=== PATIENT | male | born 1945 | race Caucasian/White ===

== ENCOUNTER 2018-08-16 09:06 | Outpatient (CLI) | payer MEDICARE, OTHER, SELFPAY ==
[2018-08-16 10:33] LABS: ALT 36 U/L (12-78); AST 17 U/L (15-37); Albumin 3.9 g/dL (3.4-5.0); Alkaline Phosphatase 70 U/L (46-116); BUN 18 mg/dL (7-18); Bilirubin, Total 0.9 mg/dL (0.2-1.0); Calcium 9.1 mg/dL (8.5-10.1); Calculated LDL 62; Chloride 106 mmol/L (98-107); Cholesterol 124 mg/dL (50-200); Glucose 115 mg/dL (70-100); HDL Cholesterol 39 mg/dL (40-60); Potassium 4.3 mmol/L (3.5-5.1); Sodium 145 mmol/L (136-145); Total Protein 6.6 g/dL (6.4-8.2); Triglyceride 119 mg/dL (30-150)
== END 2018-08-16 09:26 ==
PROVIDERS: PCP Nurse Practitioner Family; Visit Provider Nurse Practitioner Family
DX: E78.5 Hyperlipidemia, unspecified; I10 Essential (primary) hypertension
CPT/HCPCS: 36415; 80053; 80061; 83721

== ENCOUNTER 2019-04-25 10:21 | Outpatient (CLI) | payer MEDICARE, OTHER, SELFPAY ==
--- NOTE | 2019-04-25 10:00 | DI.RAD_ITS ---
EXAM: Chest x-ray CLINICAL HISTORY: Worsening cough R05, SOB R06.02 TECHNIQUE: 2D digital imaging was performed. COMPARISON: No exams were available for comparison FINDINGS: The cardiac and mediastinal contours have a normal appearance. The lungs are well inflated and clear . No infiltrate, effusion or pneumothorax is seen. No spine or rib fracture is identified. IMPRESSION: Negative chest x-ray.
== END 2019-04-25 10:41 ==
PROVIDERS: PCP Nurse Practitioner Family; Visit Provider Nurse Practitioner
DX: R05 Cough (principal); R06.02 Shortness of breath
CPT/HCPCS: 71046

== ENCOUNTER 2019-07-08 02:09 | Outpatient (CLI) | payer MEDICARE, OTHER, SELFPAY ==
[2019-07-08 10:16] LABS: BUN 19 mg/dL (7-18); CO2 32.3 mmol/L (21.0-32.0); CREATININE 1.11 mg/dL (0.70-1.30); Calcium 9.2 mg/dL (8.5-10.1); Calculated LDL 81 mg/dL (<100); Chloride 103 mmol/L (98-107); Cholesterol 154 mg/dL (<200); Glucose 104 mg/dL (74-106); HDL Cholesterol 43 mg/dL (40-60); Sodium 143 mmol/L (136-145); Triglyceride 152 mg/dL (<150)
[2019-07-08 10:17] LABS: Anion Gap 7.7 mmol/L (3-11)
[2019-07-11 10:34] LABS: TSH (W/Ref FT4) 1.92 uIU/mL (0.36-3.74)
== END 2019-07-08 02:29 ==
PROVIDERS: PCP Nurse Practitioner Family; Visit Provider Nurse Practitioner Family
DX: I10 Essential (primary) hypertension (principal); E78.5 Hyperlipidemia, unspecified; R25.1 Tremor, unspecified
CPT/HCPCS: 36415; 80048; 80061; 84443

== ENCOUNTER 2020-10-21 02:43 | Outpatient (CLI) | payer MEDICARE, OTHER, SELFPAY ==
[2020-10-21 11:49] LABS: HCT 43.8 % (40.0-50.0); HGB 14.5 g/dL (13.5-17.5); MCH 30.9 pg (27.0-33.0); MCHC 33.1 % (32.0-36.0); MCV 93.4 fL (80-95); MPV 9.2 fL (8.0-11.0); Platelet Count 167 10^3/uL (130-400); RBC 4.69 10^6/uL (4.36-5.78); RDW 12.2 % (11.8-14.1)
[2020-10-21 12:09] LABS: Hemoglobin A1C 5.7 % (<5.7)
[2020-10-21 13:01] LABS: ALT 33 U/L (16-63); AST 18 U/L (15-37); Albumin 4.1 g/dL (3.4-5.0); Alkaline Phosphatase 63 U/L (46-116); BUN 29 mg/dL (7-18); Bilirubin, Total 0.8 mg/dL (0.2-1.0); CREATININE 1.5 mg/dL (0.70-1.30); Calcium 9.9 mg/dL (8.5-10.1); Calculated LDL 74 mg/dL (<100); Chloride 108 mmol/L (98-107); Cholesterol 145 mg/dL (<200); Estimated GFR 45.38 (mL/min/1.73m2); Glucose 114 mg/dL (74-106); HDL Cholesterol 43 mg/dL (40-60); Potassium 4.7 mmol/L (3.5-5.1); Sodium 147 mmol/L (136-145); Triglyceride 140 mg/dL (<150)
== END 2020-10-21 02:44 | disposition home or self-care (01) ==
LOC: LBO 02:43
PROVIDERS: PCP Nurse Practitioner Family; Visit Provider Nurse Practitioner Family
DX: I10 Essential (primary) hypertension (principal); R73.01 Impaired fasting glucose; E78.5 Hyperlipidemia, unspecified; Z51.81 Encounter for therapeutic drug level monitoring
CPT/HCPCS: 36415; 80053; 80061; 84153; 85027; 83036

== ENCOUNTER 2020-12-31 02:56 | Outpatient (CLI) | payer MEDICARE, SELFPAY ==
[2020-12-31 10:39] LABS: Anion Gap 8.8 mmol/L (3-11); BUN 27 mg/dL (7-18); CO2 31.2 mmol/L (21.0-32.0); CREATININE 1.5 mg/dL (0.70-1.30); Calcium 9.4 mg/dL (8.5-10.1); Chloride 103 mmol/L (98-107); Estimated GFR 45.38 (mL/min/1.73m2); Glucose 175 mg/dL (74-106); Potassium 3.9 mmol/L (3.5-5.1); Sodium 143 mmol/L (136-145)
== END 2020-12-31 02:57 | disposition home or self-care (01) ==
LOC: LBO 02:57
PROVIDERS: PCP Nurse Practitioner Family; Visit Provider Nurse Practitioner Family
DX: N28.9 Disorder of kidney and ureter, unspecified (principal)
CPT/HCPCS: 36415; 80048

== ENCOUNTER 2021-01-06 02:50 | Outpatient (CLI) | payer MEDICARE, SELFPAY ==
[2021-01-06 12:06] LABS: Clarity Clear (Clear)
[2021-01-06 12:07] LABS: Bilirubin Negative (Negative); Blood Negative (Negative); Glucose Negative (Negative); Ketones Negative (Negative); Leukocyte Esterase Negative (Negative); Nitrite Negative (Negative); Urobilinogen 0.2 EU/dL (Up TO 0.2)
[2021-01-06 16:12] LABS: COMMENT (LAB VIEW ONLY) 95.23 mg/dL; Microalb ug/mg Crea 6.2 ug/mg Cr
== END 2021-01-06 02:51 | disposition home or self-care (01) ==
LOC: LBO 02:50
PROVIDERS: PCP Nurse Practitioner Family; Visit Provider Nurse Practitioner Family
DX: N28.9 Disorder of kidney and ureter, unspecified (principal)
CPT/HCPCS: 81003; 82043; 82570

== ENCOUNTER 2021-02-01 00:27 | Outpatient (CLI) | payer MEDICARE, OTHER, SELFPAY ==
--- NOTE | 2021-02-01 07:00 | DI.US_ITS ---
Exam(s) US RENAL EXAM: US RENAL CLINICAL HISTORY: persistent new renal insuff; CKD vs. other?,N28.9 TECHNIQUE: Ultrasound of both kidneys performed using standard protocol. COMPARISON: No exams were available for comparison FINDINGS: RIGHT KIDNEY: Measures 10 cm in length. No cysts evident. Normal cortical thickness and corticomedullary differenti ation .No solid masses No intrarenal calculi nor hydronephrosis. LEFT KIDNEY: Measures 12.3 cm in length. No cysts evident. Normal cortical thickness and corticomedullary differe ntiaion. No solids masses. Small 3 millimeter hyperechoic focus in the upper lobe noted. Possibly r epresenting nonobstructive calculus URINARY BLADDER: Prevoid volume is 213 cc Postvoid volume is 128 cc No evidence of bladder mass nor diverticuli. Prostate gland 0.8 x 2.2 x 2 7 cm (9 cc volume). Ureterovesical jets: Both identified and appear symmetrical IMPRESSION: 1. No significant ultrasound findings in the right kidney. Possible nonobstructive 3 millimeter len culus the left kidney. 2. 128 cc postvoid residual in the urinary bladder. DATA REPOSITORY:
== END 2021-02-01 00:47 ==
PROVIDERS: PCP Nurse Practitioner Family; Visit Provider Nurse Practitioner Family
DX: N28.9 Disorder of kidney and ureter, unspecified (principal); R93.422 Abnormal radiologic findings on diagnostic imaging of left kidney
CPT/HCPCS: 76770

== ENCOUNTER 2021-02-09 03:09 | Outpatient (CLI) | payer MEDICARE, OTHER, SELFPAY ==
[2021-02-09 22:40] LABS: PSA, Screening 0.5 ng/mL (0.0-6.5)
== END 2021-02-09 03:10 | disposition home or self-care (01) ==
LOC: LBO 03:10
PROVIDERS: PCP Nurse Practitioner Family; Visit Provider Nurse Practitioner Family
DX: N40.0 Benign prostatic hyperplasia without lower urinary tract symptoms (principal); R33.9 Retention of urine, unspecified; Z12.5 Encounter for screening for malignant neoplasm of prostate
CPT/HCPCS: 36415; 84153

== ENCOUNTER 2021-04-23 02:24 | Outpatient (CLI) | payer MEDICARE, OTHER, SELFPAY ==
--- NOTE | 2021-04-23 07:00 | DI.US_ITS ---
Exam(s) US RENAL EXAM: US RENAL CLINICAL HISTORY: 3 mo f/u bladder retention s/p BPH tx started,n18.9,chronic kidney disease TECHNIQUE: Ultrasound of both kidneys performed using standard protocol. COMPARISON: US US RENAL from 02/01/2021 FINDINGS: RIGHT KIDNEY: Measures 10 cm in length. No cysts evident. Normal cortical thickness and corticomedullary differenti ation .No solid masses No intrarenal calculi nor hydronephrosis. LEFT KIDNEY: Measures 11 cm in length. No cysts evident. Normal cortical thickness and corticomedullary different iaion. No solids masses. No intrarenal calculi nor hydonephrosis. URINARY BLADDER: Prevoid volume is 369 cc Postvoid volume is 69 cc No evidence of bladder mass nor diverticuli. Ureterovesical jets: Not visualized on either side IMPRESSION: 1. No significant ultrasound findings in the kidneys. 2. Postvoid volume in the urinary bladder 69 cc. There is no obvious bladder wall mass on these debra ges. DATA REPOSITORY:
== END 2021-04-23 02:44 ==
PROVIDERS: PCP Nurse Practitioner Family; Visit Provider Nurse Practitioner Family
DX: N18.9 Chronic kidney disease, unspecified (principal)
CPT/HCPCS: 36415; 76770; 80048

== ENCOUNTER 2021-04-23 04:00 | Outpatient (CLI) | payer MEDICARE, OTHER, SELFPAY ==
[2021-04-23 13:32] LABS: Anion Gap 7.9 mmol/L (3-11); BUN 17 mg/dL (7-18); CO2 31.1 mmol/L (21.0-32.0); CREATININE 1.3 mg/dL (0.70-1.30); Calcium 9.5 mg/dL (8.5-10.1); Chloride 105 mmol/L (98-107); Estimated GFR 53.53 (mL/min/1.73m2); Glucose 129 mg/dL (74-106); Potassium 3.7 mmol/L (3.5-5.1); Sodium 144 mmol/L (136-145)
== END 2021-04-23 04:01 | disposition home or self-care (01) ==
LOC: LBO 04:00
PROVIDERS: PCP Nurse Practitioner Family; Visit Provider Nurse Practitioner Family
DX: N28.9 Disorder of kidney and ureter, unspecified (principal)
CPT/HCPCS: 36415; 80048

== ENCOUNTER 2021-11-10 01:42 | Outpatient (CLI) | payer MEDICARE, OTHER, SELFPAY ==
[2021-11-10 11:11] LABS: Abs Immature Grans 0.01 10^3/uL (0.0-0.06); Absolute Basophil Count 0.05 10^3/uL (0.0-0.2); Absolute Lymphocyte Count 1.07 10^3/uL (1.2-3.4); Absolute Neutrophil Count 3.44 10^3/uL (1.2-6.7); Eosinophils % 3.9; HCT 41.9 % (40.0-50.0); HGB 14.2 g/dL (13.5-17.5); Immature Grans % 0.2; Lymphocytes % 20.7; MCH 31.1 pg (27.0-33.0); MCHC 33.9 % (32.0-36.0); MCV 92 fL (80-95); MPV 9.1 fL (8.0-11.0); Monocytes % 7.7; Neutrophils % 66.5; Platelet Count 170 10^3/uL (130-400); RBC 4.56 10^6/uL (4.36-5.78); RDW 12.4 % (11.8-14.1); RDW-SD 41.5 fL; WBC 5.17 10^3/uL (4.4-10.8)
[2021-11-10 11:57] LABS: ALT 37 U/L (16-63); AST 18 U/L (15-37); Albumin 3.8 g/dL (3.4-5.0); Alkaline Phosphatase 65 U/L (46-116); Anion Gap 9.4 mmol/L (3-11); BUN 21 mg/dL (7-18); Bilirubin, Total 0.9 mg/dL (0.2-1.0); CO2 28.6 mmol/L (21.0-32.0); CREATININE 1.4 mg/dL (0.70-1.30); Calcium 9.4 mg/dL (8.5-10.1); Calculated LDL 59 mg/dL (<100); Chloride 104 mmol/L (98-107); Cholesterol 119 mg/dL (<200); Estimated GFR 51.45 (mL/min/1.73m2); Glucose 114 mg/dL (74-106); HDL Cholesterol 43 mg/dL (40-60); Potassium 3.8 mmol/L (3.5-5.1); Sodium 142 mmol/L (136-145); Total Protein 7.3 g/dL (6.4-8.2); Triglyceride 88 mg/dL (<150)
[2021-11-10 11:59] LABS: Hemoglobin A1C 5.9 % (<5.7)
== END 2021-11-10 01:43 | disposition home or self-care (01) ==
LOC: LBO 01:42
PROVIDERS: PCP Nurse Practitioner Family; Visit Provider Nurse Practitioner Family
DX: E78.5 Hyperlipidemia, unspecified (principal); I10 Essential (primary) hypertension; Z51.81 Encounter for therapeutic drug level monitoring; R73.01 Impaired fasting glucose
CPT/HCPCS: 36415; 80053; 80061; 83036; 85025

== ENCOUNTER 2022-12-29 03:06 | Outpatient (CLI) | payer MEDICARE, OTHER, SELFPAY ==
[2022-12-29 09:42] LABS: Abs Immature Grans 0.01 10^3/uL (0.0-0.06); Absolute Basophil Count 0.05 10^3/uL (0.0-0.2); Absolute Eosinophil Count 0.34 10^3/uL (0.0-0.7); Absolute Lymphocyte Count 1.18 10^3/uL (1.2-3.4); Absolute Monocyte Count 0.45 10^3/uL (0.1-0.8); Absolute Neutrophil Count 3.09 10^3/uL (1.2-6.7); Eosinophils % 6.6; HCT 45.8 % (40.0-50.0); HGB 15.4 g/dL (13.5-17.5); Immature Grans % 0.2; MCH 30.8 pg (27.0-33.0); MCHC 33.6 % (32.0-36.0); MCV 92 fL (80-95); MPV 9.4 fL (8.0-11.0); Monocytes % 8.8; Neutrophils % 60.4; Platelet Count 161 10^3/uL (130-400); RDW 12.6 % (11.8-14.1); RDW-SD 42.5 fL; WBC 5.12 10^3/uL (4.4-10.8)
[2022-12-29 09:52] LABS: ALT 27 U/L (16-63); AST 13 U/L (15-37); Albumin 4.1 g/dL (3.4-5.0); Alkaline Phosphatase 70 U/L (46-116); Anion Gap 8.7 mmol/L (3-11); BUN 16 mg/dL (7-18); Bilirubin, Total 0.9 mg/dL (0.2-1.0); CO2 28.3 mmol/L (21.0-32.0); CREATININE 1.4 mg/dL (0.70-1.30); Calcium 9.9 mg/dL (8.5-10.1); Calculated LDL 64 mg/dL (<100); Chloride 105 mmol/L (98-107); Cholesterol 129 mg/dL (<200); Estimated GFR 51.13 (mL/min/1.73m2); Glucose 113 mg/dL (74-106); HDL Cholesterol 54 mg/dL (40-60); Potassium 3.9 mmol/L (3.5-5.1); Sodium 142 mmol/L (136-145); Total Protein 7.5 g/dL (6.4-8.2); Triglyceride 58 mg/dL (<150)
[2022-12-29 09:58] LABS: Hemoglobin A1C 5.4 % (<5.7)
== END 2022-12-29 03:07 | disposition home or self-care (01) ==
PROVIDERS: PCP Nurse Practitioner Family; Visit Provider Nurse Practitioner Family
DX: I10 Essential (primary) hypertension (principal); R73.01 Impaired fasting glucose; E78.5 Hyperlipidemia, unspecified; N18.9 Chronic kidney disease, unspecified
CPT/HCPCS: 36415; 80053; 80061; 83036; 85025

== ENCOUNTER → 2023-03-08 01:34 | Outpatient (CLI) | payer MEDICARE, OTHER, SELFPAY ==
--- NOTE | 2023-03-08 08:15 | DI.US_ITS ---
APPROVED REPORT EXAM: Comprehensive 2D, Doppler, and color-flow Echocardiogram Patient Location: Out-Patient General Assignment Reporter: Marco Antonio Finn RDCS (AE) Indications: cardiac murmur- evaluate for valve disease Conclusion 1. LV normal size, other chambers mildly dilated. 2. Normal LV systolic function,EF60-65%. No wall motion abnormality. Normal RV function. 3. Aortic sclerosis without stenosis. Trace AI. Mild mitral annular calcification,mild MR,mild TR wit h borderline elevated PA systolic pressure at 36 mmHg. 4. No intracardiac shunt by doppler. 5. No pericardial effusion. Wall motion Left Ventricle The left ventricle is normal size. The left ventricular systolic function is normal. The left ventric ular ejection fraction is within the normal range. There is normal left ventricular wall thickness. T here is normal LV segmental wall motion. There is no ventricular septal defect visualized. LVEF is 55 %. Right Ventricle The right ventricle is normal size. The right ventricular systolic function is normal. Atria The left atrium size is normal. Right atrium is mildly dilated. The interatrial septum is intact with no evidence for an atrial septal defect. Aortic Valve The Aortic valve is sclerotic. There is no aortic valvular stenosis. Trace aortic regurgitation. Mitral Valve The mitral valve is normal in structure. No evidence of mitral valve stenosis. Trace mitral regurgita tion. Tricuspid Valve The tricuspid valve is normal in structure. There is no tricuspid valve stenosis. Moderate tricuspid regurgitation. The RVSP is 36.1 mmHg. Pulmonic Valve The pulmonary valve is normal in structure. There is no pulmonic valvular stenosis. Trace pulmonic re gurgitation. Great Vessels The aortic root is normal in size. The ascending aorta is mildly dilated. Aortic arch is not well vis ualized. IVC is normal in size and collapses >50% with inspiration. Pericardium There is no pericardial effusion. 2D Dimensions IVSD d PLAX 0.79 cm M: 0.6-1.2 Ao Root d 2.70 cm M: 3.1 - 3.7 LVPW d PLAX 0.83 cm M: 0.6 - 1.2 Ao Asc Diam d 3.62 cm M: 2.6 - 3.4 LVID d PLAX 4.05 cm M: 4.2 - 5.8 LVDs 2.87 cm M: 2.5 - 4.0 LV EF Teichholz 56.2 % FS 28.99 % LV EDV (Teich) 71.9 mL LV ESV (Teich) 31.5 mL Stroke Vol Index (Teich) 20.74 M-Mode TAPSE 2.29 cm (M/F) >1.7 Auto EF LV EDV A4C 89.4 mL LV EDV A2C 80.5 mL LV EDV BP 87.5 mL LV ESV A4C 40.8 mL LV ESV A2C 36.0 mL LV ESV BP 38.3 mL LVEF(%) A4C 54.3 % LVEF(%) A2C 55.3 % LVEF(%) BP 56.2 % LV SV A4C 48.5 ml LV SV A2C 44.5 ml LV SV BP 49.2 ml LV CO A4C 3.2 L/min LV CO A2C 2.9 L/min LV CO BP 3.1 L/min HR A4C 66.67 BPM HR A2C 65.10 BPM LV EDV Index (BP) LA Volume LA Length A4C 5.4 cm LA Length A2C 5.0 cm LA Area A4C s 11.61 cm2 LA Area A2C s 11.22 cm2 LA Vol A4C A-L 21.29 mL LA Vol A2C A-L 21.50 mL LA Vol Biplane A-L 22.2 mL LA Vol/BSA A4C A-L LA Vol/BSA A2C A-L LA Vol/BSA BP A-L 11.4 mL/m2 LA Vol A4C MOD 20.5 mL LA Vol A2C MOD 20.9 mL LA Vol BP MOD 21.3 mL RA Volume RA Area A4C 12.9 cm2 RA ESV A4C (A-L) 27.4mL RA Vol/BSA A4C A-L RA Length A4C 5.1 cm RA ESV A4C (MOD) 28.8mL LV Diastology MV E' medial 0.077 (>0.07 m/s) MV E Vmax 0.73 (0.4-1.3 m/s) MV E/E' MED 9.56 (<14) MV A Vmax 0.90 (0.4-1.3 m/s) MV E' lateral 0.092 (>0.1 m/s) E/A Ratio 0.8 MV E/E' LAT 7.94 (<14) MV E' Average 0.085 m/s MV E/E'(average) 8.68 Aortic Valve AoV Vmax 2.02 m/s LVOT Vmax 1.41 m/s AoV Peak Grad 16.3 mmHg LVOT Peak Grad 8.0 mmHg AoV Area (Vmax) 1.42 cm2 LVOT VTI 0.305 m AoV VTI 0.468 m LVOT Mean Grad 4.2 mmHg AoV Mean Yamil. 1.41 m/s LVOT SV 61.67 mL AoV Mean Grad 9.0 mmHg LVOT Diam s 1.60 cm AoV Area (VTI) 1.32 cm2 Velocity Ratio 0.70 Mitral Valve MV DT 182 (160-240 msec) Pulmonary Valve PV Vmax 0.96 (0.5-1.5 m/s) RVOT Vmax 0.58 m/s PV Peak Grad 3.7 mmHg RVOT Peak Gr. 1.3 mmHg PV Mean Yamil 0.68 m/s RVOT VTI 0.107 m PV Mean Grad 2.1 mmHg RVOT Mean Gr. 0.7 mmHg Tricuspid Valve RA Pressure 3.00 mmHg TR Vmax 2.87 m/s TR Peak Grad 33.0 mmHg RVSP (TR) 36.1 mmHg
== END ==
PROVIDERS: PCP Nurse Practitioner Family; Visit Provider Nurse Practitioner Adult Health
DX: R01.1 Cardiac murmur, unspecified (principal)
CPT/HCPCS: 93306

== ENCOUNTER → 2023-12-12 11:13 | Outpatient (BNVA) | payer MEDICARE, OTHER, SELFPAY | PROVIDERS: PCP Nurse Practitioner Adult Health; Referring Provider Nurse Practitioner Adult Health; Visit Provider Surgery | DX: R15.9 Full incontinence of feces (principal); R15.2 Fecal urgency | CPT/HCPCS: 99203 ==

== ENCOUNTER 2023-12-20 03:19 | Outpatient (CLI) | payer MEDICARE, OTHER, SELFPAY ==
[2023-12-20 10:41] LABS: Hemoglobin A1C 5.1 % (<5.7)
[2023-12-20 10:44] LABS: Anion Gap 6.7 mmol/L (3-11); BUN 26 mg/dL (7-18); CO2 29.3 mmol/L (21.0-32.0); CREATININE 1.5 mg/dL (0.70-1.30); Calcium 9.9 mg/dL (8.5-10.1); Calculated LDL 50 mg/dL (<100); Chloride 109 mmol/L (98-107); Cholesterol 115 mg/dL (<200); Estimated GFR 46.77 (mL/min/1.73m2); Glucose 107 mg/dL (74-106); HDL Cholesterol 53 mg/dL (40-60); Potassium 4.2 mmol/L (3.5-5.1); Sodium 145 mmol/L (136-145); Triglyceride 62 mg/dL (<150)
[2023-12-20 19:02] LABS: PSA, Screening 0.4 ng/mL (<=6.5)
== END 2023-12-20 03:20 | disposition home or self-care (01) ==
LOC: LBO 03:20
PROVIDERS: PCP Nurse Practitioner Adult Health; Visit Provider Nurse Practitioner Adult Health
DX: N40.0 Benign prostatic hyperplasia without lower urinary tract symptoms (principal); I10 Essential (primary) hypertension; E78.5 Hyperlipidemia, unspecified; R73.01 Impaired fasting glucose; N18.31 Chronic kidney disease, stage 3a
CPT/HCPCS: 36415; 80048; 80061; 84153; 83036

== ENCOUNTER 2025-02-17 01:27 | Outpatient (CLI) | payer MEDICARE, OTHER, SELFPAY ==
[2025-02-17 09:52] LABS: Hemoglobin A1C 5.4 % (<5.7)
[2025-02-17 10:18] LABS: Anion Gap 8.1 mmol/L (3-11); BUN 20 mg/dL (9-23); CO2 28.9 mmol/L (20.0-31.0); Calcium 9.5 mg/dL (8.3-10.6); Chloride 109 mmol/L (98-107); Cholesterol 117 mg/dL (<200); Glucose 107 mg/dL (74-106); HDL Cholesterol 43 mg/dL (>or=40); Potassium 4.1 mmol/L (3.5-5.1); Sodium 146 mmol/L (136-145)
== END 2025-02-17 01:28 | disposition home or self-care (01) ==
LOC: LBO 01:29
PROVIDERS: PCP Nurse Practitioner Adult Health; Visit Provider Nurse Practitioner Adult Health
DX: E78.5 Hyperlipidemia, unspecified (principal); R73.01 Impaired fasting glucose; I10 Essential (primary) hypertension
CPT/HCPCS: 36415; 80048; 80061; 83036